=== PATIENT | male | born 1965 | race Caucasian/White ===

== ENCOUNTER 2020-08-22 16:30 | Outpatient (RCR) | payer OTHER, SELFPAY ==
[2020-05-30 07:46] VITALS: PULSE 85
--- NOTE | 2020-06-27 12:05 | PCCPR ---
Spoke with Lizbeth from [facility] regarding a message she left on our voice mail. A session assessment sent last 06/23/20 including a rhythm strip. Ruben is planning to return to work. Her question clarified.
== END 2020-08-22 18:38 | disposition home or self-care (01) ==
LOC: ANHCPREHAB 16:30
PROVIDERS: Visit Provider Internal Medicine Cardiovascular Disease
DX: Z95.1 Presence of aortocoronary bypass graft (principal)
CPT/HCPCS: 93798

== ENCOUNTER 2024-01-14 08:12 | Outpatient (CLI) | payer OTHER, SELFPAY ==
--- NOTE | ~2024-01-14 | XR_ITS ---
[id number] Ordering provider: Caren Corral, [place] History: . PLEURODYNIA . Comparison: March 31, 2016 FINDINGS: BONES: No acute rib fracture. MEDIASTINUM: The cardiac silhouette is not enlarged. Postoperative changes in the mediastinum. LUNGS: No infiltrates, effusions or pneumothorax. Small nodule in the right lower lobe area most likely granuloma. 3 months follow-up advised. OTHER: No free air under the diaphragm. IMPRESSION: 1. No right rib fracture (Note: subtle/nondisplaced rib fractures can be occult on plain films and i f there is continued clinical suspicion for rib fracture, recommend follow up CT chest). 2. No acute cardiopulmonary findings. 3. Nodule or granuloma in the right lower lobe. 3 months follow-up chest x-rays advised. Reviewed, dictated and finalized at location A. IMPRESSION: 1. No right rib fracture (Note: subtle/nondisplaced rib fractures can be occul t on plain films and if there is continued clinical suspicion for rib fracture, recommend follow up CT chest). 2. No acute cardiopulmonary findings. 3. Nodule or granuloma in the right lower lobe. 3 months follow-up chest x-ray s advised.
--- NOTE | ~2024-01-14 | US_ITS ---
Limited Abdominal Sonogram: Real-time sonographic imaging of the right upper quadrant was performed. Clinical History: Right upper quadrant pain Findings: The liver appears normal with no evidence of mass lesion or bile duct dilatation. Main por john paul vein demonstrates normal direction of flow. The gallbladder is well distended, and appears normal with no evidence of gallstone or wall thickening. The common bile duct measures 4 mm. The visualize d pancreas, aorta, and IVC are unremarkable. Impression: No significant abnormality seen. Reviewed, dictated and finalized at location M. Impression: No significant abnormality seen.
== END 2024-01-14 08:13 ==
PROVIDERS: PCP Physician Assistant; Visit Provider Physician Assistant
DX: R10.11 Right upper quadrant pain (principal); R07.81 Pleurodynia
CPT/HCPCS: 71101; 76705

== ENCOUNTER 2024-06-29 00:47 | Day surgery (SDC) | payer OTHER, SELFPAY ==
[2024-06-22 13:31] VITALS: BMI 24.4
[2024-06-29 12:30] VITALS: BP 127/82; PULSE 78; RESP 18; TEMP 36.3; O2SAT 98; BMI 23.9
[2024-06-29] MEDS: LACTATED RINGERS 1,000 ML 150 ML IV CONT (12:56)
--- NOTE | 2024-06-29 13:03 | P.PNAN_ITS ---
Anes - Initial Pre Proc Eval Procedure: Operation Date: 06/29/24 13:30 Proposed Procedures p Colonoscopy - Rinku Mcallister MD Date/Time: 06/29/24 13:03 Surgeon: Rinku Mcallister MD Pre Op Diagnosis: fecal abnormalities Patient Data Age: 59 Gender: M Height: 1.85 m Weight: 82.4 kg Last Vital Signs Temp 36.3 C L 06/29/24 12:30 Pulse 78 06/29/24 12:30 Resp 18 06/29/24 12:30 BP 127/82 06/29/24 12:30 Pulse Ox 98 06/29/24 12:30 O2 Del Method Room Air 06/29/24 12:30 Allergies Allergy/AdvReac Type Severity Reaction Status Date / Time No Known Allergies Allergy Mild Verified 06/29/24 12:34 Home Medications ?Medication ?Instructions ?Recorded ?Confirmed ?Type Adult Aspirin EC Low Strength 81 mg PO DAILY 05/26/20 06/29/24 History alprazolam 0.25 mg tablet (Xanax) 0.25 mg PO HS PRN Sleep 05/26/20 06/22/24 History atorvastatin 80 mg tablet 80 mg PO HS 05/26/20 06/29/24 History docusate sodium 100 mg capsule 100 mg PO BID 05/26/20 06/22/24 History (Colace) loratadine 10 mg tablet (Claritin) 10 mg PO DAILY 05/26/20 06/29/24 History metoprolol tartrate 25 mg tablet 25 mg PO BID 05/26/20 06/22/24 History Patient hx anesthesia problems: none Family hx anesthesia problems: none Results Review: All pre-operative results and documents have been reviewed as part of the pre- operative evaluation. [facility] Family History Family History (Updated 05/26/20 @ 13:55 by Ellie Jacobson RN) Sibling Hyperlipidemia Social History Social History (System 04/13/20 @ 09:53 by Dominique Witt) Smoking status: Never smoker Alcohol intake: current Drinks per week: 2 Substance use type: does not use Living arrangements: with family Spiritual care concerns: No Anes - Eval Final PreProcedure Day of Procedure 06/29/24 13:03 Patient weight: normal Heart: regular rate and rhythm Lungs: clear to auscultation and normal air movement Airway: Mallampati scale class III Neurological: alert and oriented Last oral intake: >/= 8 hours ASA classification: III Emergent: no Anesthetic plan: proceed Anesthesia type and monitoring: general GIVS and standard monitoring Results Review: All pre-operative results and documents have been reviewed as part of the pre- operative evaluation. Informed Consent: The patient's anesthetic plan and its attendant risks and benefits were discussed with the patient/family/POA. Questions were solicited and answers provided to the satisfaction of the patient/family/POA.
--- NOTE | 2024-06-29 13:15 | PM.IMHP ---
H&P: HPI History of Present Illness Date/Time: 06/29/24 13:15 Chief Complaint: Screening colonoscopy Narrative: This is the patient's first colonoscopy. There are no GI symptoms and there is no family history of colorectal cancer. Review of Systems Review of Systems: All systems reviewed & are unremarkable except as noted in HPI and below PMFSH Family History Family History (Updated 05/26/20 @ 13:55 by Ellie Jacobson RN) Sibling Hyperlipidemia Social History Social History (System 04/13/20 @ 09:53 by Dominique Witt) Smoking status: Never smoker Alcohol intake: current Drinks per week: 2 Substance use type: does not use Living arrangements: with family Spiritual care concerns: No Meds Home Medications and Allergies Home Medications ?Medication ?Instructions ?Recorded ?Confirmed ?Type Adult Aspirin EC Low Strength 81 mg PO DAILY 05/26/20 06/29/24 History alprazolam 0.25 mg tablet (Xanax) 0.25 mg PO HS PRN Sleep 05/26/20 06/22/24 History atorvastatin 80 mg tablet 80 mg PO HS 05/26/20 06/29/24 History docusate sodium 100 mg capsule 100 mg PO BID 05/26/20 06/22/24 History (Colace) loratadine 10 mg tablet (Claritin) 10 mg PO DAILY 05/26/20 06/29/24 History metoprolol tartrate 25 mg tablet 25 mg PO BID 05/26/20 06/22/24 History Allergies Allergy/AdvReac Type Severity Reaction Status Date / Time No Known Allergies Allergy Mild Verified 06/29/24 12:34 Vital Signs Vital Signs - 24 hr 06/29/24 12:30 Temperature 97.3 F L Pulse Rate 78 Respiratory Rate 18 Blood Pressure 127/82 Pulse Oximetry 98 Oxygen Delivery Room Air Exam Const: General: cooperative and healthy appearing Resp: Effort & Inspection: normal respiratory effort and able to speak in complete sentences Auscultation: clear to auscultation bilaterally Cardio: Rate: regular rate Rhythm: regular rhythm GI: Inspection: normal to inspection GI Palp: No No hepatosplenomegaly present Auscultation: normal bowel sounds Rectal Exam: deferred Skin: General skin exam: normal color Psych: Appearance: grossly normal Mental Status: mental status grossly normal Assessment and Plan Assessment and plan (1) Encounter for screening colonoscopy: Code(s): Z12.11 - Encounter for screening for malignant neoplasm of colon Status: Acute Assessment and Plan: The patient is deemed a good candidate for the procedure. Consent signed. Will proceed.
--- NOTE | 2024-06-29 14:02 | SUR.OPER ---
At 1400 During case we switched to gastroscope in search of sigmoid polyp.
[2024-06-29 14:14] VITALS: BP 106/66; PULSE 69; RESP 18; O2SAT 98
[2024-06-29 14:24] VITALS: BP 87/52; PULSE 62; RESP 18; O2SAT 98
[2024-06-29 14:34] VITALS: BP 98/59; PULSE 64; RESP 18; O2SAT 100
--- OUTSIDE RECORDS SUMMARY | 2024-07-02 11:09 | XMS_ITS | Data Portability ---
Author Organization [facility] Address [address] [facility] [place] [address] Care Team Providers Care Director Of Special Events Name Role Phone ISAIAS LYNN Primary Care Provider Unavailab le Assessment Encounter Date Assessment Date Assessment LastModified by Organization Details LastModified Time 12/27/2023 12/27/2023 Colonoscopy: has been discussed in past but never completed. Eye exam scheduling soon. dental just now UTD [email or web address] Not available 12/27/2023 11:48:05 Plan of Treatment Reminders Order Date Submit Date Provider Last Modified By Organization Details Last Modified Time Details Appointments None recorded. Lab TSH + free T4, serum 2023 024 [email or web address] [facility], [address], [place], [address], 4 11:44:43 CBC w/ auto diff 2023 024 [email or web address] [facility], [address], [place], [address], 4 11:45:32 CMP, serum or plasma 2023 024 [email or web address] [facility], [address], [place], [address], 4 11:45:40 lipid panel, serum 2023 024 [email or web address] [facility], [address], [place], [address], 4 11:44:14 PSA, serum or plasma [facility], [address], [address], [place], [address], 4 11:44:24 noninvasive colorectal cancer DNA + occult blood screening, QL, stool 2023 Not [facility] (Cologuard Orders Only), [address], [address], [place], [address], 4 00:54:06 HbA1c (hemoglobin A1c), blood [facility], [address], [address], [place], [address], 4 11:44:34 Referral None recorded. Procedures None recorded. Surgeries None recorded. Imaging XR, ribs, unilateral, w/ PA chest 2023 [facility], [address] [facility], [address], [place], [address], 5 15:04:29 US, abdomen, limited 2023 [facility], [address] [facility], [address], [place], [address], 5 15:04:11 Medication Orders None recorded. Patient TargetsNo targets recorded. Patient InstructionsNo instructions recorded. Reason for Referral None Reported. Results Created Date Observation Date Name Description Value Unit Range Abnormal Flag Note LastModifiedBy Organization Detail LastModifiedTime 04/20/20 24 04/20/2024 COLOG UARD cologuard result reportable POSITI VE negati ve abnormal POSIT WILLIAMS TEST RESUL T. A posit williams Colog uard resul t shoul d be follo wed with a colon oscop y or visua l exami natio n of the colon . The glenn l value (refe rence range ) for this assay is negat williams. TEST DESCR IPTIO N: [place] site algor ithmi c devin sis of stool DNA-b iofabienne kim with hemog lobin immun oassa y. Quant itati ve value s of indiv idual bioma rkers are not repor table and are not assoc iated with indiv idual bioma rker resul t refer ence range s. Colog uard is inten ded for color ectal cance r scree conner of adult s of eithe r sex, 45 years or older , who are at [facility] for color ectal cance r (CRC) . Colog uard has been appro mariana for use by the U.[place]. FDA. The perfo rmanc e of Colog uard was estab lishe d in a cross secti onal study of [facility] adult s aged 50-84 . Colog uard perfo rmanc e in patie nts ages 45 to 49 years was estim ated by sub-g roup devin sis of near- age group s. Colon oscop ies perfo rmed for a posit williams resul t may find as the most clini mariam signi fican t lesio n: color ectal cance r [4.0% ], advan esther adeno ma (incl uding sessi le karrie ken polyp s great er than or equal to 1cm diame ter) [20%] or non- advan esther adeno ma [31%] ; or no color ectal neopl silke [45%] . These estim ates are deriv ed from a prosp ectiv e cross -sect ional scree conner study of 10,00 0 indiv idual s at [facility] risk for color ectal cance r who were scree genoveva with both Colog uard and colon oscop y. (Gt Whalen et al, N Engl J Med 2014; 370(1 4):12 86-12 97.) Colog uard may produ ce a false negat williams or false posit williams resul t (no color ectal cance r or preca ncero us polyp prese nt at colon oscop y follo w up). A negat williams Colog uard test resul t does not guara ntee the absen ce of CRC or advan esther adeno ma (pre- cance r). The curre nt Colog uard feliciae conner inter nancy is every 3 years . (Amcrystal benitez Socie ty and U.S. Multi -Soci ety Task Force ). Colog uard perfo rmanc e data in a 10,00 0 patie nt pivot al study using colon oscop y as the refer ence metho d can be acces sed at the follo wing locat ion: www.e xactl abs.c om/re sults . Addit ional descr iptio n of the Colog uard test proce ss, warni ngs and preca ution s can be found at www.c ologu shadi.c om. Not Available [facility] (Cologuard Orders Only) [address], [place], [address], 04/30/2024 00:54:06 Result Notes None recorded. Problems Name Problem SNOMED Code Status Onset Date Resolution Date Notes Provider Name and Address Organization Details Recorded Time Body mass index 25-29 - overweight 200012080 Active 2023 MICHAEL Sawyer Attn: Jamil g,[address] [facility], [place], [address], [place] - [facility] 4 21:37:12 Coronary atherosclerosi s 902728573 Active 2023 MICHAEL Sawyer Attn: Accountin g,[address] [facility], [place], [address], [place] [facility] 4 21:37:18 History of coronary artery bypass grafting 855049696 Active 2023 MICHAEL Sawyer Attn: Jamil g,[address] [facility], [place], [address], [place] [facility] 4 21:37:19 Hyperlipidemia 93190418 Active 2023 MICHAEL Sawyer Attn: Jamil g,[address] [facility], [place], [address], [place] [facility] 4 21:37:29 Rib pain 245576198 Active 2023 MICHAEL Sawyer Attn: Jamil carty,[address] [facility], [place], [address], [facility] 21:38:22 Right upper quadrant pain 359473179 Active 2023 MICHAEL Sawyer Attn: Jamil carty,[address], [place], [address], [facility] 21:38:23 Problem Notes None recorded. Procedures Surgical History Date Name Laterality Status Provider Name and Address Organization Details Recorded Time Coronary artery bypass/reop completed Dimitry Gee MA [facility] 12/27/2023 11:47:12 Imaging Results None recorded. Procedure Notes None recorded. Medical Equipment None Reported. Allergies No known drug allergies Medications Name Sig Start Date Stop Date Status Note LastModified by Organization Details LastModified Time atorvastatin 80 mg tablet Take 1 tablet every day by oral route. active Not Available Not Available No t Available Baby Aspirin 81 mg chewable tablet Chew 1 tablet every day by oral route. active Not Available Not Available No t Available Vitals Date Recorded Respiratory rate Provider Name a nd Address Organization Details Last Updated DateTime 12/27/2023 20 /min Dimitry Gee MA [facility] 12/27/2023 11:30:01 Date Recorded Body weight Provider Name an d Address Organization Details Last Updated DateTime 12/27/2023 47295.88 g Dimitry Gee MA [facility] 2023 11:30:07 Date Recorded Body mass index (BMI) Body height Provider Name and Address Organization Details Last Updated DateTime 12/27/2023 25.1 kg/m2 182.88 cm Dimitry Gee MA [facility] 12/27/2023 11:30:34 Date Recorded Oxygen saturation Oxygen saturation in Arterial blood by Pulse oximetry Provider Name and Address Organization Details Last Updated DateTime 12/27/2023 98 % 98 % Dimitry Gee [place] [facility] 12/27/2023 11:33:55 Date Recorded Heart rate Provider Name an d Address Organization Details Last Updated DateTime 12/27/2023 87 /min ZIA Garza [facility] 2023 11:33:57 Date Recorded Systolic blood pressure Diastolic blood pressure Provider Name and Address Organization Details Last Updated DateTime 12/27/2023 138 mm[Hg] 88 mm[Hg] Dimitry Gee MA [facility] 12/27/2023 11:35:23 Date Recorded Systolic blood pressure Diastolic blood pressure Provider Name and Address Organization Details Last Updated DateTime 12/27/2023 120 mm[Hg] 80 mm[Hg] MICHAEL Sawyer Attn: Accounting,[address] [facility], [place], [address], [facility] 12/27/2023 11:57:09 Social History Question Answer Notes LastModified by Organizat ion Details LastModified Time Tobacco Smoking Status Never Smoker Dimitry Gee MA null, [facility] 12/27/2023 11:32:16 Do You Have An Advance Directive? No Information not available 12/27/2023 What Is Your Level Of Alcohol Consumption? None Information not available 12/27/2023 Are You Blind Or Do You Have Difficulty Seeing? No Glasses Information not available 12/27/2023 What Is Your Level Of Caffeine Consumption? Moderate Information not available 12/27/2023 In The 14 Days Before Symptom Onset, Have You Had Close Contact With A Laboratory-confir med COVID-19 While That Case Was Ill? No Information not available 12/27/2023 In The 14 Days Before Symptom Onset, Have You Had Close Contact With A Person Who Is Under Investigation For COVID-19 While That Person Was Ill? No Information not available 12/27/2023 Have You Been To An Area Known To Be High Risk For COVID-19? No Information not available 12/27/2023 Are You Deaf Or Do You Have Serious Difficulty Hearing? No Information not available 12/27/2023 What Type Of Diet Are You Following? REGULAR Information not available 12/27/2023 Are There Any Guns Present In Your Home? No Information not available 12/27/2023 What Was The Date Of Your Most Recent Tobacco Screening? 12/27/2023 Information not available 12/27/2023 What Is Your Relationship Status? Information not available 12/27/2023 Do You Use Your Seat Belt Or Car Seat Routinely? Yes Information not available 12/27/2023 Do You Have Smoke And Carbon Monoxide Detectors In Your Home? Yes Information not available 12/27/2023 Do You Feel Stressed (tense, Restless, Nervous, Or Anxious, Or Unable To Sleep At Night)? [id number] Information not available 12/27/2023 Do You Use Any Illicit Or Recreational Drugs? No Information not available 12/27/2023 Do You Use Sunscreen Routinely? Yes Information not available 12/27/2023 Has Tobacco Cessation Counseling Been Provided? Yes Information not available 12/27/2023 On What Date Was Tobacco Cessation Counseling Provided? 12/27/2023 Information not available 12/27/2023 Do You Or Have You Ever Used Any Other Forms Of Tobacco Or Nicotine? No Information not available 12/27/2023 Sex: Male Functional Status Question Answer Note LastModified by Organization D etails LastModified Time Are you able to care for yourself? Yes Information not available 12/27/2023 What is your exercise level? Moderate Information not available 12/27/2023 Mental Status None recorded. Family History Relationship Description Onset Age of this Age Resolved Age Notes LastModified by Organization Details LastModified Time Sister Hypercholest tyronia tcarterma Not available 2023 11:47:27 Brother Hypercholest tyronia tcarterma Not available 2023 11:47:27 Medical History Condition Response High Cholesterol Y Past Encounters Encounter ID Performer Location Encounter Start Date Encounter Closed Date Diagnosis/Indication Diagnosis SNOMED-CT Code Diagnosis ICD10 Code Diagnosis Note [id number] MICHAEL Sawyer [facility] [place] [address] [place] [address] 12/27/2023 11:13:05 12/27/2023 12:02:15 Body mass index 25-29 - overweight 620545894 Z68.25 BMI 25.1 Adult [facility] th examination 786512571 Z00.01 Annual wellness exam completed with fasting labs ordered Coronary atherosclerosis 524674838 I25.10 Cardiology annual f/u with Dr. Penaloza. Patient is asymptomat ic and doing very well. Long-term drug therapy 931691271 Z79.899 All routine labs were ordered fasting History of coronary artery bypass grafting 070111965 Z95.1 x 2 vessel in 2020. Hyperlipidemia 34079337 E78.5 Continue atorvastat in 80 mg daily. Due for fasting lipids Benign ess ential hypertension 5975905 I10 Patient is stable at this time off of medication . Blood pressure is 120/80 Screening for malignant neoplasm of prostate 794033632 Z12.5 Annual PSA due Diabetes m ellitus screening 076468374 Z13.1 Diabetes screening ordered Thyroid di sorder screening 370302564 Z13.29 Thyroid panel due Screening for malignant neoplasm of colon 019512728 Z12.11 Patient opts for Cologuard screening method Right uppe r quadrant pain 324079543 R10.11 Patient does report some right upper quadrant pain on exam today. We will send for ultrasound of the abdomen in the right upper quadrant Rib pain 784788122 R07.8 1 Patient is also slightly tender over the right upper quadrant costal margin. We will check x-ray of the ribs with a PA of the chest Health Concerns Section Related Observation LastModified by Organization Detai ls LastModified Time None Recorded Concern Status LastModified by Organization Details LastModified Time None Recorded Advance Directives Directive N: Payers Encounter Date Sequence Insurance Name Policy Number Policy Wylie Covered Member ID Wylie Member ID Guarantor Name 12/27/2023 1 [facility] [id number] Franck Gray [id number] Franck Gray Notes Date Note Type Note Provider Name and Address Organization Details Recorded Time 12/27/2023 text/html Coronary Artery Disease F/UReported bypatient.Notes :History of two-vessel bypass surgery in 2019. Patient is on high-dose statin and baby aspirin and doing excellent. His diet is very good along with exercise. He is due for routine labs MICHAEL Sawyer Attn: Accounting,[address] [facility], [place], [address], [facility] 01/08/2024 21:39:04
--- OUTSIDE RECORDS SUMMARY | 2024-07-02 11:09 | XMS_ITS | Referral Summary ---
Author Organization [facility] Address [facility] [place] [address] Care Team Providers Care Mental Health Worker Name Role Phone Caren Corral Primary Care Pr ovider Butch Catherine MD Unavailable [phone] Carl Maya MD Unavailable Allergies No known active allergies Medications loratadine (CLARITIN) 10 mg tablet Take 10 mg by mouth as needed Active ALPRAZolam (XANAX) 0.25 mg tablet Take 0.25 mg by mouth nightly as needed for anxiety Active famotidine (PEPCID) 40 mg tablet Take 10 mg by mouth daily Active ibuprofen (ADVIL,MOTRIN) 200 mg tab/cap Take by mouth as needed for pain Active fluticasone propionate (FLONASE) 50 mcg/actuation nasal spray Administer 1 spray into each nostril daily Active ezetimibe (ZETIA) 10 mg tablet Take 1 tablet (10 mg total) by mouth daily 30 tablet 11 4 08/14/19 25 Active aspirin 81 mg enteric coated tablet TAKE 1 TABLET BY MOUTH EVERY DAY 90 tablet 1 4 Active atorvastatin (LIPITOR) 80 mg tablet TAKE 1 TABLET(80 MG) BY MOUTH DAILY 90 tablet 1 4 Active Active Problems Problem Noted Date Diagnosed Date Coronary artery disease invo lving [place] coronary artery of [place] heart without angina pectoris 03/31/2020 Overview (03/31/2020): Added automatically from request for surgery [id number] Chest pain 03/23/2020 Overview (03/23/2020): Added automatically from request for surgery [id number] Abnormal stress test 03/23/2020 Overview (03/23/2020): Added automatically from request for surgery [id number] Preop cardiovascular exam 03/23/2020 Overview (03/23/2020): Added automatically from request for surgery [id number] Immunizations Name Administration Dates Next Due Influenza, Unspecified 03/10/2020 Social History Tobacco Use Types Packs/Day Years Used Date Smoking Tobacco: Never Smokeless Tobacco: Never Tobacco Cessation:Counseling Given: Not Answered Alcohol Use Standard Drinks/Week Comments Yes 0 (1 standard drink = 0.6 oz pur e alcohol) rare use Humiliation, Afraid, Rape, and Kick questionnair e Answer Date Recorded Within the last year, have y ou been afraid of your partner or ex-partner? No 04/06/2020 Within the last year, have y ou been humiliated or emotionally abused in other ways by your partner or ex-partner? No Within the last year, have y ou been kicked, hit, slapped, or otherwise physically hurt by your partner or ex-partner? No 04/06/2020 Within the last year, have y ou been raped or forced to have any kind of sexual activity by your partner or ex-partner? No 04/06/2020 Social Connection and Isolation Panel [NHANES] A nswer Date Recorded Frequency of Communication with Friends and Fami ly Not on file 04/06/2020 Frequency of Social Gatherings with Friends and Family Not on file 04/06/2020 Attends Restorationism Services Not on file 04/06 Active Member of Clubs or Organizations Not on f ile 04/06/2020 Attends Club or Organization Meetings Not on miguel e 04/06/2020 Are you , , di vorced, , never , or living with a partner? 04/06/2020 AUDIT-C Answer Date Recorded Q1: How often do you have a drink containing alc ohol? Never 03/23/2020 Average Number of Drinks Not on file 020 Frequency of Binge Drinking Not on file 03/10 Overall Financial Resource Strain (CARDIA) Answe r Date Recorded How hard is it for you to pa y for the very basics like food, housing, medical care, and heating? Not hard at all 04/06/2020 Hunger Vital Sign Answer Date Recorded Within the past 12 months, y ou worried that your food would run out before you got the money to buy more. Never true 04/06/20 20 Within the past 12 months, t he food you bought just didn't last and you didn't have money to get more. Never true 04/06/2020 PRAPARE - Transportation Answer Date Re corded In the past 12 months, has l ack of transportation kept you from medical appointments or from getting medications? No 03/11 In the past 12 months, has l ack of transportation kept you from meetings, work, or from getting things needed for daily living? No 04/06/2020 Sex and Gender Information Value Date Recorded Sex Assigned at Not on file Legal Sex Male 7:47 PM ADDICTION TREATMENT COUNSELOR Gender Identity Not on file Sexual Orientation Not on file Last Filed Vital Signs Vital Sign Reading Time Taken Comments Blood Pressure 108/72 08/14/2023 11:41 AM ADDICTION TREATMENT COUNSELOR Pulse 68 08/14/2023 11:41 AM ADDICTION TREATMENT COUNSELOR Temperature 36.7 ??C (98 ??F) 08/11/2020 11:45 AM ADDICTION TREATMENT COUNSELOR Respiratory Rate 14 08/11/2020 11:45 AM ADDICTION TREATMENT COUNSELOR Oxygen Saturation 99% 08/14/2023 11:41 AM ADDICTION TREATMENT COUNSELOR Inhaled Oxygen Concentration - - Weight 84.8 kg (187 lb) 08/14/2023 11:41 AM ADDICTION TREATMENT COUNSELOR Height 182.9 cm (6') 08/14/2023 11:41 AM ADDICTION TREATMENT COUNSELOR Body Mass Index 25.36 08/14/2023 11:41 AM ADDICTION TREATMENT COUNSELOR Plan of Treatment Not on file Insurance [facility] Address: [place] [address] [facility] Address: [place] [address] [facility] Address: [place] [address] [facility] Address: [facility] [address] [place] [address] Advance Directives For more information, please contact: [phone] * Full Code (Latest Code Status on File) Date Activated Date Inactivated Comments 04/04/2020 1:58 PM 04/08/2020 11:03 PM Care Teams Mental Health Worker Relationship Specialty Start Date End Date Caren Corral PA PCP - General Physician Drafter Patent 03/10/20 Butch Catherine MD Fellow Vascular Surgery 04/08/20 Carl Maya MD [address] [address] Consulting Physician Cardiology 04/08/20
--- OUTSIDE RECORDS SUMMARY | 2024-07-02 11:09 | XMS_ITS | Clinical Summary ---
Author Organization [facility] Address [address] [place] [id number] Care Team Providers Care Elastic Yarn Twister Name Role Phone Unavailable Primary Care Provider Unavailabl e Immunizations Immunization Administration Dates Next Due Covid-19, Mrna, Lnp-s, Pf, 30 Mcg/0.3 Ml Dose (P amy) 04/07/2021 Social History Tobacco Use Types Packs/Day Years Used Date Smoking Tobacco: Never Assessed Sex and Gender Information Value Date Recorded Sex Assigned at Not on file Legal Sex Male 4:58 PM CDT Gender Identity Not on file Sexual Orientation Not on file Plan of Treatment Health Maintenance Due Date Last Done Comments Hepatitis C Virus (HCV) Screening 1965 TdaP Immunization 1965 Hepatitis B Immunization (1 of 3 - 19+ 3-dose series) 01/21/1984 Colonoscopy 2010 Colorectal Cancer Screening 2010 Cologuard 2015 Immunochemical Fecal Occult Blood 2015 Pneumococcal Immunization (5 0+ years) (1 of 1 - PCV) 2015 Zoster Immunization (1 of 2) 2015 PSA Discussion 01/21/2020 Influenza Immunization (#1) 2024 SARS-COV-2 Immunization (2 - season) 2024 04/07/2021 Respiratory Syncytial Virus (RSV) Immunization (Adult) (1 - 1-dose 75+ series) 01/21/2040 Meningococcal Immunization (ACWY) Aged Out No longer eligible based on patient's age to complete this topic Pneumococcal Immunization Combined Aged Out No longer eligible based on patient's age to complete this topic Rotavirus Immunization Aged Out No lo nger eligible based on patient's age to complete this topic
--- OUTSIDE RECORDS SUMMARY | 2024-07-02 11:09 | XMS_ITS | Clinical Summary ---
Author Organization [facility] Address [address] [place] [id number] Care Team Providers Care State Wildlife Officer Name Role Phone Caren Corral Primary Care Pr ovider Butch Catherine MD Unavailable [phone] Carl Maya MD Unavailable Allergies No [...] Diagnosed Date Coronary artery disease invo lving [place] coronary artery of [place] heart without angina pectoris 03/31/2020 Overview (03/31/2020): Added automatically from request for surgery [id number] Chest pain 03/23/2020 Overview (03/23/2020): Added automatically from request for surgery [id number] Abnormal stress test 03/23/2020 Overview (03/23/2020): Added automatically from request for surgery [id number] Preop cardiovascular exam 03/23/2020 Overview (03/23/2020): Added automatically from request for surgery [id number] Immunizations Name Administration Dates Next Due Influenza, Unspecified 03/10/2020 Surgical History Surgery Date Site/Laterality Comments TONSILLECTOMY CARDIAC CATHETERIZATION 03/31/2020 CORONARY ARTERY BYPASS GRAFT 04/04/2020 Medical History Medical History Date Comments Hyperlipidemia Abnormal stress test 2019 Family History Medical History Relation Name Comments No Known Problems Father Pneumonia Mother Relation Name Status Comments Brother Alive Father Alive Mother (Age 70) Sister Alive Social History Tobacco Use Types Packs/Day Years [...] and Family Not on file 04/06/2020 Attends Muslim Services Not on file 04/06 Active Member [...] on file Legal Sex Male 7:47 PM ACCOUNT ADJUSTER Gender Identity Not on file Sexual Orientation Not on file Obstetrics History Last Filed Vital Signs Vital Sign Reading Time Taken Comments Blood Pressure 108/72 08/14/2023 11:41 AM ACCOUNT ADJUSTER Pulse 68 08/14/2023 11:41 AM ACCOUNT ADJUSTER Temperature 36.7 ??C (98 ??F) 08/11/2020 11:45 AM ACCOUNT ADJUSTER Respiratory Rate 14 08/11/2020 11:45 AM ACCOUNT ADJUSTER Oxygen Saturation 99% 08/14/2023 11:41 AM ACCOUNT ADJUSTER Inhaled Oxygen Concentration - - Weight 84.8 kg (187 lb) 08/14/2023 11:41 AM ACCOUNT ADJUSTER Height 182.9 cm (6') 08/14/2023 11:41 AM ACCOUNT ADJUSTER Body Mass Index 25.36 08/14/2023 11:41 AM ACCOUNT ADJUSTER Plan of Treatment Health Maintenance Due Date Last Done Comments Colon Cancer Screening-Colonoscopy 1965 Depression Screening 1965 Hepatitis C Screening 1965 Prostate Cancer Screening-PSA 1965 DTaP/Tdap/Td Vaccine (1 - Tdap) 01/21/1976 Hepatitis B Screening 1983 Regular Well Visit/Exam 18-64 1983 Zoster Vaccine (1 of 2) 2015 Covid-19 Vaccine (3 - 2023-2 5 season) 2024 04/07/2021, 08/25/2020 Influenza Vaccine (#1) 2024 , 03/11/2019 Pneumococcal vaccine <65 Aged Out No longer eligible based on patient's age to complete this topic Insurance [facility] Address: [place] [address] [facility] Address: [place] [address] [facility] Address: [place] [address] [facility] Address: [place] [address] Advance Directives For more information, please contact: [phone] * Full Code (Latest Code Status on File) Date Activated Date Inactivated Comments 04/04/2020 1:58 PM 04/08/2020 11:03 PM Care Teams State Wildlife Officer Relationship Specialty Start Date End Date Caren Corral PA PCP - General Physician Qm Consultant 03/10/20 Butch Catherine MD Fellow Vascular Surgery 04/08/20 Carl Maya MD [address] [facility] [address] [id number] Consulting Physician Cardiology 04/08/20
== END 2024-06-29 14:52 | disposition home or self-care (01) ==
PROVIDERS: PCP Physician Assistant; Visit Provider Internal Medicine Gastroenterology
PROC: 0DJD8ZZ Inspection of Lower Intestinal Tract, Via Natural or Artificial Opening Endoscopic (ICD-10-PCS; CPT 45378; principal; 2024-06-29 13:30)
DX: Z12.11 Encounter for screening for malignant neoplasm of colon (principal); D12.2 Benign neoplasm of ascending colon; K63.5 Polyp of colon; K57.30 Diverticulosis of large intestine without perforation or abscess without bleeding
CPT/HCPCS: 45385; 88305; J1596; J2003; J2371; J2704; J7120